=== PATIENT | female | born 1975 | race Caucasian/White ===

== ENCOUNTER 2017-06-04 15:15 | Outpatient (CLI) | payer OTHER | END 2017-06-04 19:18 | disposition home or self-care (01) | LOC: SUS 15:15 | PROVIDERS: ATTEND Obstetrics & Gynecology | DX: N85.2 Hypertrophy of uterus (principal); R93.8 Abnormal findings on diagnostic imaging of other specified body structures; N63.20 Unspecified lump in the left breast, unspecified quadrant | CPT/HCPCS: 76641; 76830-TC; 76857 ==